=== PATIENT | female | born 1965 | race Caucasian/White ===

== ENCOUNTER 2018-02-06 08:59 | Day surgery (SDC) | payer BC ==
[~2018-02-06] VITALS: Ht 157.5 cm; Wt 85.0 kg
[~2018-02-06 08:59] MED LIST: ACET325 PO; ASPI81CH PO; ATEN50 PO; ATOR40TA PO; Aspirin EC81 MG PO; Ativan1 MG SL; CLOB.05TC; CLOP75; CLOP75 PO; FAMO40 PO; GLIP2.5ER; HYDCHL12.5 PO; HYDR1TAB94 PO; Hydrocodone-Ap1 EA23; INSUASPI SC; INSULANPEN SC; LEVSOD50; LEVSOD75 PO; LISI20 PO; LISI5; LORA.5 PO; METF500 PO; Metformin HCl500 MG PO; Motrin800 MG PO; NAPR500 PO; NITR.4SL SL; Omeprazole20 M1; Omeprazole20 M1 PO; Pepcid40 MG PO; Phenergan25 M1 PO; SERT50; SERT50 PO; TICA90TA PO; VITAMIN D35000 UNIT PO; WOMEN'S 50+ DA1 EAC1 PO; Zestril40 MG
== END 2018-02-06 15:40 | disposition home or self-care (01) ==
LOC: MHTC 08:59
PROC: 4A023N7 Measurement of Cardiac Sampling and Pressure, Left Heart, Percutaneous Approach (ICD-10-PCS; principal; 2018-02-06)
PROC: B211YZZ Fluoroscopy of Multiple Coronary Arteries using Other Contrast (ICD-10-PCS; principal; 2018-02-06)
DX: I25.10 Atherosclerotic heart disease of native coronary artery without angina pectoris (principal); R94.39 Abnormal result of other cardiovascular function study; R07.9 Chest pain, unspecified; I10 Essential (primary) hypertension; E11.9 Type 2 diabetes mellitus without complications; F17.210 Nicotine dependence, cigarettes, uncomplicated; E78.5 Hyperlipidemia, unspecified; E03.9 Hypothyroidism, unspecified; Z95.5 Presence of coronary angioplasty implant and graft
CPT/HCPCS: 85347; 93458; 93571; 99152; 99153; C1769; C1894; J1644; J2250; J3010; J7030; Q9967

== ENCOUNTER 2019-04-13 16:25 | Emergency (ER) | payer BC ==
[~2019-04-13] VITALS: Ht 157.5 cm; Wt 84.4 kg
[2019-04-13 16:58] LABS: BASOPHILS ABSOLUTE AUTO 0.05 K/mm3 (0.00-0.23); BASOPHILS PERCENT AUTO 1 % (0-2); EOSINOPHILS ABSOLUTE AUTO 0.26 K/mm3 (0.00-0.68); EOSINOPHILS PERCENT AUTO 3 % (0-6); Hemoglobin 14.7 g/dL (11.5-16.0); IMMATURE GRAN ABSOLUTE AUTO 0.03 K/mm3 (0.00-0.10); IMMATURE GRAN PERCENT AUTO 0 % (0-1); LYMPHOCYTES PERCENT AUTO 26 % (21-46); MONOCYTES ABSOLUTE AUTO 0.92 K/mm3 (0.16-1.47); MONOCYTES PERCENT AUTO 9 % (4-13); Mean Corpuscular HGB 30.3 pg (26.0-34.0); Mean Corpuscular HGB Conc 33.4 g/dL (31.5-36.5); Mean Corpuscular Volume 91 fL (80-100); Mean Platelet Volume 10.6 fL (9.1-12.4); NEUTROPHILS ABSOLUTE AUTO 6.33 K/mm3 (1.96-9.15); NEUTROPHILS PERCENT AUTO 62 % (41-73); Platelet Count 223 K/mm3 (150-400); RDW Coefficient Variation 12.4 % (11.7-14.2); RDW Standard Deviation 41.1 fL (35.1-46.3); Red Blood Cell Count 4.85 M/mm3 (3.80-5.20); White Blood Cell Count 10.29 K/mm3 (4.00-11.30)
[2019-04-13 17:12] LABS: Alanine Aminotransfer (ALT/SGP 31 U/L (12-78); Albumin, Blood 3.6 g/dL (3.4-5.0); Albumin/Globulin Ratio 1.1 (0.8-1.8); Alk Phos 111 U/L (50-136); Anion Gap 2 mmol/L (6-16); Aspartate Aminotrans (AST/SGOT 31 U/L (12-37); Bilirubin, Total 0.7 mg/dL (0.1-1.0); Blood Urea Nitrogen 12 mg/dL (8-24); Bun/Creatinine Ratio 20.9 (12.0-20.0); CO2, Blood 31 mmol/L (21-32); Calcium, Blood 8.9 mg/dL (8.5-10.1); Chloride, Blood 107 mmol/L (98-108); Creatinine, Blood 0.57 mg/dL (0.40-1.00); Globulin, Blood 3.2 g/dL (2.2-4.0); Glomerular Filtration Rate >60 (60-); Glucose, Blood 167 mg/dL (70-99); Potassium, Blood 3.9 mmol/L (3.5-5.5); Sodium, Blood 140 mmol/L (136-145); Total Protein, Blood 6.8 g/dL (6.4-8.2); Troponin I <0.015 ng/mL (0.000-0.040)
[2019-04-13] MEDS ORDERED: Cipro500 MG PO (21:51)
[2019-04-13] MEDS ORDERED: ONDA4ODT MM (21:51)
== END 2019-04-13 22:12 | disposition home or self-care (01) ==
LOC: ER 16:25
PROVIDERS: Emergency Medicine
DX: K52.9 Noninfective gastroenteritis and colitis, unspecified (principal); E05.90 Thyrotoxicosis, unspecified without thyrotoxic crisis or storm; E11.9 Type 2 diabetes mellitus without complications; F41.9 Anxiety disorder, unspecified; F32.9 Major depressive disorder, single episode, unspecified; Z86.73 Personal history of transient ischemic attack (TIA), and cerebral infarction without residual deficits; Z87.891 Personal history of nicotine dependence; Z88.1 Allergy status to other antibiotic agents; Z79.899 Other long term (current) drug therapy; Z79.84 Long term (current) use of oral hypoglycemic drugs; Z79.02 Long term (current) use of antithrombotics/antiplatelets; Z79.82 Long term (current) use of aspirin
CPT/HCPCS: 36415; 71046; 80053; 84484; 85025; 93005; 93010; 96361; 96374; 99285-25; J2405; J7030

== ENCOUNTER 2019-05-18 09:20 | Day surgery (SDC) | payer BC ==
[~2019-05-18] VITALS: Ht 157.5 cm; Wt 85.3 kg
[~2019-05-18 09:20] MED LIST changes: +Cipro500 MG PO; +ONDA4ODT MM
[2019-05-18] MEDS ORDERED: NITR.4SL SL (09:56)
[2019-05-18] MEDS ORDERED: OZEMPIC0.25 MG/0. SQ (09:58)
--- NOTE | 2019-05-18 10:30 | NUR ---
05/18/19 1030 Hayley Yi PT. WAS IN WAITING ROOM HOLDING WATER FOR FAMILY & TOOK A SIP OF IT AT 0815 PER [facility] GIS SPECIALIST RENAE. WHEN PT. INTERVIEWED, PT. VERBALIZES SHE DIDN'T KNOW THAT SHE COULDN'T DRINK ANYMORE AFTER HER PREP. PT. VERBALZIES SHE JUST TOOK A SMALL SIP AT 0815 BUT OTHERWISE NOTHING SINCE 0600 TODAY.
== END 2019-05-18 11:56 | disposition home or self-care (01) ==
LOC: ORSCSDS 09:20
PROVIDERS: Internal Medicine Gastroenterology
PROC: 0DBN8ZX Excision of Sigmoid Colon, Via Natural or Artificial Opening Endoscopic, Diagnostic (ICD-10-PCS; principal; 2019-05-18 10:45)
PROC: 0DBM8ZX Excision of Descending Colon, Via Natural or Artificial Opening Endoscopic, Diagnostic (ICD-10-PCS; principal; 2019-05-18 10:45)
PROC: 0DBK8ZX Excision of Ascending Colon, Via Natural or Artificial Opening Endoscopic, Diagnostic (ICD-10-PCS; principal; 2019-05-18 10:45)
PROC: 0DB68ZX Excision of Stomach, Via Natural or Artificial Opening Endoscopic, Diagnostic (ICD-10-PCS; principal; 2019-05-18 10:45)
DX: R93.5 Abnormal findings on diagnostic imaging of other abdominal regions, including retroperitoneum (principal); D12.2 Benign neoplasm of ascending colon; D12.4 Benign neoplasm of descending colon; K63.5 Polyp of colon; K44.9 Diaphragmatic hernia without obstruction or gangrene; K22.10 Ulcer of esophagus without bleeding; K57.30 Diverticulosis of large intestine without perforation or abscess without bleeding; K64.8 Other hemorrhoids; F17.210 Nicotine dependence, cigarettes, uncomplicated; I25.10 Atherosclerotic heart disease of native coronary artery without angina pectoris; I10 Essential (primary) hypertension; E03.9 Hypothyroidism, unspecified; E78.5 Hyperlipidemia, unspecified; E11.9 Type 2 diabetes mellitus without complications; Z79.01 Long term (current) use of anticoagulants; Z79.82 Long term (current) use of aspirin; Z79.84 Long term (current) use of oral hypoglycemic drugs; Z79.899 Other long term (current) drug therapy
CPT/HCPCS: 82947; 88305; 88342; J2250; J2704; J7120

== ENCOUNTER 2020-10-02 05:29 | Day surgery (SDC) | payer BC ==
[~2020-10-02] VITALS: Ht 157.5 cm; Wt 99.0 kg
[~2020-10-02 05:29] MED LIST changes: +ALBU90OI; +AMLO5 PO; +ATOR80 PO; +Atarax10 MG PO; +BASAGLAR K100 UNIT/1 SC; +CYCLOBENZAPRINE5 MG PO; +GABA300 PO; +LEVO750 PO; +METO50ER PO; +Nitroglycerin1 EAC3 TOP; +OZEMPIC0.25 MG/0. SQ; +PANT40 PO; +PREG50; +TIOT18 INH
--- NOTE | 2020-10-02 12:30 | NUR ---
PT TRANSFERED TO PCU VIA [facility]. FULL REPORT GIVEN. -BLEEDING OR SWELLING R WRIST AREA.
[2020-10-02] MEDS ORDERED: NOVOLOG100 UNIT/2 SC (13:19)
--- NOTE | 2020-10-02 14:15 | NUR ---
DR. CHAVEZ AT BEDSIDE. DISCUSSED POC. NOTIFIED HIM PATIENT REPORTED CHEST PRESSURE RATED 5/10, DOWN TO 2/10 AFTER ONE NITRO AND SHE DID NOT WANT ANOTHER NITRO. HE STATED THAT WAS OK. PATIENT STATES SHE "FEELS FINE" NOW. ORDERS RECEIVED FOR CBGS AC, NOVOLIN-R 7 UNITS AC PLUS NOVOLIN-R LOW SLIDING SCALE AC (PATIENT USUALLY TAKES NOVOLOG 14 UNITS AC). CLARIFIED MEDS WITH HIM, ORDERS RECEIVED TO DC ALBUTEROL (PATIENT DOES NOT TAKE AT HOME), DC LYRICA (PATIENT DOES NOT TAKE AT HOME), AND FOR LIPITOR 80 MG PO AT BEDTIME.
--- NOTE | 2020-10-02 19:20 | NUR ---
ASSUMED CARE RECEIVED BEDSIDE REPORT FROM VALENT[facility]NRN; PT A&O X 4; DENIES CHEST PAIN; VSS; NSR ON TELE; O2 SATS >93 ON RA; R RADIAL SITE RECOVERED W/ TEGADERM IN PLACE; ARM BOARD IN PLACE FOR STABILITY; NO DISTRESS NOTED; CALL LIGHT IN REACH; BED IN LOWEST POSITION.
--- NOTE | 2020-10-02 19:36 | NUR ---
SHIFT SUMMARY: PATIENT A/OX3. NITRO GIVEN FOR CHEST PRESSURE X1 WHICH REDUCED PAIN FROM 5/10 TO 2/10 AND THEN PATIENT HAS DENIED PAIN SINCE. TR BAND DEFLATED AND REMOVED, TEGADERM IN PLACE TO R ARM, ARMBOARD IN PLACE TO R ARM, PATIENT VERBALIZED UNDERSTANDING OF R RADIAL ACCESS PRECAUTIONS. TOLERATING DIET. UP TO BATHROOM WITH SBA. PLAN IS FOR DISCHARGE HOME TOMORROW. REPORT GIVEN TO ONCOMING RN.
--- NOTE | 2020-10-03 06:46 | NUR ---
SHIFT SUMMARY PT A&O X 4; REPORTS ANGINA 1X THIS SHIFT; VSS; NSR NOTED ON TELE W/ HR 68; R RADIAL SITE DRY W/ TEGADERM IN PLACE AND ARM BOARD; EDUCATION PROVIDED NOT TO USE ARM, PT EXPRESSES UNDERSTANDING; O2 SATS >93 ON RA ON SECOND DIGIT R HAND; SCD'S IN PLACE; NO DISTRESS NOTED, CURRENTLY DENIES NEEDS; CALL LIGHT IN REACH; BED IN LOWEST POSITION; WILL CONTINUE TO MONITOR CLOSELY UNTIL HAND OFF TO DAY SHIFT RN.
[2020-10-03 07:17] LABS: BASOPHILS ABSOLUTE AUTO 0.04 K/mm3 (0.00-0.23); BASOPHILS PERCENT AUTO 0 % (0-2); EOSINOPHILS ABSOLUTE AUTO 0.17 K/mm3 (0.00-0.68); EOSINOPHILS PERCENT AUTO 2 % (0-6); Hematocrit 39.7 % (33.0-51.0); Hemoglobin 13.1 g/dL (11.5-16.0); IMMATURE GRAN ABSOLUTE AUTO 0.04 K/mm3 (0.00-0.10); IMMATURE GRAN PERCENT AUTO 0 % (0-1); LYMPHOCYTES PERCENT AUTO 24 % (21-46); MONOCYTES ABSOLUTE AUTO 0.87 K/mm3 (0.16-1.47); MONOCYTES PERCENT AUTO 10 % (4-13); Mean Corpuscular HGB 29.7 pg (26.0-34.0); Mean Corpuscular Volume 90 fL (80-100); Mean Platelet Volume 10.7 fL (9.1-12.4); NEUTROPHILS ABSOLUTE AUTO 5.69 K/mm3 (1.96-9.15); NEUTROPHILS PERCENT AUTO 63 % (41-73); Platelet Count 221 K/mm3 (150-400); RDW Coefficient Variation 12.9 % (11.7-14.2); RDW Standard Deviation 42.5 fL (35.1-46.3); Red Blood Cell Count 4.41 M/mm3 (3.80-5.20); White Blood Cell Count 9.01 K/mm3 (4.00-11.30)
[2020-10-03 07:35] LABS: Anion Gap 6 mmol/L (6-16); Blood Urea Nitrogen 14 mg/dL (8-24); Bun/Creatinine Ratio 20.9 (12.0-20.0); CO2, Blood 30 mmol/L (21-32); Calcium, Blood 8.9 mg/dL (8.5-10.1); Chloride, Blood 105 mmol/L (98-108); Creatinine, Blood 0.67 mg/dL (0.40-1.00); Glomerular Filtration Rate >60 (60-); Glucose, Blood 229 mg/dL (70-99); Potassium, Blood 4.4 mmol/L (3.5-5.5); Sodium, Blood 141 mmol/L (136-145)
== END 2020-10-03 10:33 | disposition home or self-care (01) ==
LOC: MHTC 05:29 → PCU 12:44 → MHTC 10-03 10:33
PROVIDERS: Internal Medicine
DX: I25.119 Atherosclerotic heart disease of native coronary artery with unspecified angina pectoris (principal); T82.855A Stenosis of coronary artery stent, initial encounter; Y71.2 Prosthetic and other implants, materials and accessory cardiovascular devices associated with adverse incidents; E78.5 Hyperlipidemia, unspecified; E11.9 Type 2 diabetes mellitus without complications; I10 Essential (primary) hypertension; E03.9 Hypothyroidism, unspecified; I25.2 Old myocardial infarction; G89.29 Other chronic pain; M54.9 Dorsalgia, unspecified; E66.9 Obesity, unspecified; Z79.82 Long term (current) use of aspirin; Z79.02 Long term (current) use of antithrombotics/antiplatelets; Z79.4 Long term (current) use of insulin; Z68.39 Body mass index [BMI] 39.0-39.9, adult; Z72.0 Tobacco use; Z88.1 Allergy status to other antibiotic agents
CPT/HCPCS: 36415; 76937; 80048; 82947; 85025; 85347; 92978; 93005; 93010; 93458; 93572; 99152; 99153; A9270; C1725; C1753; C1769; C1874; C1887; C1894; C9600; J0360; J1200; J1644; J1815; J2250; J3010; J7030; J7040; J7050; Q9967

== ENCOUNTER 2020-10-20 17:59 | Emergency (ER) | payer BC ==
[~2020-10-20] VITALS: Ht 157.5 cm; Wt 86.2 kg
[~2020-10-20 17:59] MED LIST changes: +NOVOLOG100 UNIT/2 SC
[2020-10-20] MEDS ORDERED: TRAM50 (20:16)
[2020-10-20] MEDS ORDERED: Percocet 5-3251 EACH PO (20:26)
== END 2020-10-20 20:25 | disposition home or self-care (01) ==
LOC: ER 17:59
DX: S80.11XA Contusion of right lower leg, initial encounter (principal); Z88.1 Allergy status to other antibiotic agents; Z79.4 Long term (current) use of insulin; Z79.82 Long term (current) use of aspirin; W19.XXXA Unspecified fall, initial encounter
CPT/HCPCS: 93971; 99283-25

== ENCOUNTER → 2021-06-04 | Outpatient (CLI) | payer BC ==
[~2021-06-04] MED LIST changes: +Percocet 5-3251 EACH PO; +TRAM50
== END ==
LOC: LAB SHORT 16:00
DX: L02.211 Cutaneous abscess of abdominal wall (principal); Z88.1 Allergy status to other antibiotic agents; Z88.8 Allergy status to other drugs, medicaments and biological substances
CPT/HCPCS: 87081

== ENCOUNTER → 2021-06-11 | Outpatient (CLI) | payer BC ==
[2021-06-11 16:03] LABS: Appearance, Urine Clear (Clear); Bilirubin, Urine Neg (Neg); Blood, Urine 1+ (Neg); Color, Urine Yellow (P-Yellow); Glucose Qualitative, Urine 4+ (Neg); Ketones, Urine Neg (Neg); Leukocyte Esterase, Urine 1+ (Neg); Nitrite, Urine Neg (Neg); Protein, Urine 1+ (Neg); Specific Gravity, Urine 1.025 (1.003-1.022); Urobilinogen, Urine NORM (Normal)
[2021-06-11 20:10] LABS: Red Blood Cells, Urine 0-2 /hpf (0-2); White Blood Cells, Urine 0-2 /hpf (0-5)
[2021-06-11 20:12] LABS: Bacteria Few /hpf; Squamous Epithelial Cells Mod /hpf (Few)
== END | disposition home or self-care (01) ==
LOC: LAB 15:17 → LAB SHORT 15:17
PROVIDERS: Family Medicine
DX: N39.0 Urinary tract infection, site not specified (principal)
CPT/HCPCS: 81001; 87086

== ENCOUNTER → 2021-09-11 | Outpatient (CLI) | payer BC ==
[2021-09-11 15:23] LABS: Source, Urine Voided
[2021-09-11 17:49] LABS: Bacteria Rare /hpf; Red Blood Cells, Urine 0-2 /hpf (0-2); Squamous Epithelial Cells Mod /hpf (Few); White Blood Cells, Urine 0-2 /hpf (0-5)
== END ==
LOC: LAB SHORT 15:21
PROVIDERS: Family Medicine
DX: R80.9 Proteinuria, unspecified (principal)
CPT/HCPCS: 81015; 87086

== ENCOUNTER 2022-01-07 06:32 | Day surgery (SDC) | payer OTHER ==
[~2022-01-07] VITALS: Ht 157.5 cm; Wt 95.8 kg
== END 2022-01-07 08:47 | disposition home or self-care (01) ==
LOC: ORSCSDS 06:32
PROVIDERS: Ophthalmology
PROC: 08RJ3JZ Replacement of Right Lens with Synthetic Substitute, Percutaneous Approach (ICD-10-PCS; principal; 2022-01-07 08:00)
DX: H25.13 Age-related nuclear cataract, bilateral (principal); E11.3293 Type 2 diabetes mellitus with mild nonproliferative diabetic retinopathy without macular edema, bilateral; I10 Essential (primary) hypertension; E78.5 Hyperlipidemia, unspecified; H34.8322 Tributary (branch) retinal vein occlusion, left eye, stable; I25.10 Atherosclerotic heart disease of native coronary artery without angina pectoris; E03.9 Hypothyroidism, unspecified; I25.2 Old myocardial infarction; Z79.82 Long term (current) use of aspirin; Z79.01 Long term (current) use of anticoagulants; Z79.84 Long term (current) use of oral hypoglycemic drugs; Z79.899 Other long term (current) drug therapy
CPT/HCPCS: 82947; J2001; J2250; J3010; J3301; J7040; V2632